=== PATIENT | female | born 1955 | race Caucasian/White ===

== ENCOUNTER → 2023-05-26 | Day surgery (SDC) | payer MEDICARE, MEDICAID ==
[~2023-05-26] VITALS: Ht 157.5 cm; Wt 68.5 kg
[~2023-05-26] MED LIST: ACET-2708 MT; BUPIVACAINE HCL/PF 0.5% (5MG/ML) 10ML ONE; CEFAZOLIN SODIUM 1000MG/VIAL ONE; DEXAMETHASONE 4MG/ML 1ML VIAL ONE; FENTANYL CITRATE/PF 50MCG/ML 2ML VIAL ONE; FERR325T23 PO; GLYCOPYRROLATE 0.2 MG/ML 2ML VIAL ONE; HYDROMORPHONE HCL/PF 2MG/ML CPJ IV PRN; LABETALOL 5MG/ML SYR 20 MG/4 ML SYRINGE IV PRN; LACTATED RINGERS 1,000 ML IV SCH; LEVO88TA7 PO; LIDOCAINE HCL 1% 10 MG/ML 10ML VIAL ONE; LIDOCAINE HCL 1% 20ML VIAL (Pyxis) INJ ONE; MEPERIDINE HCL/PF 25MG/ML CPJ IV PRN; MIDAZOLAM HCL 2 MG/2 ML VIAL ONE; NEOSTIGMINE METHYLSULFATE 1MG/ML 10 ML VIAL ONE; ONDANSETRON HCL 4MG/2ML INJ IV PRN; ONDANSETRON HCL 4MG/2ML INJ ONE; POLYMYXIN B SULFATE 500000 UNITS/VIAL ONE; PROPOFOL 200MG/20ML VIAL IV ONE; ROCURONIUM BROMIDE 10MG/ML VIAL 5ML IV ONE; SCOPOLAMINE HYDROBROMIDE PATCH 72HR TD NR; SKIN ADHESIVE 0.7 GM EA TOP ONE; SUCCINYLCHOLINE CHLORIDE 200MG/10ML IV ONE
[2023-05-26 13:44] VITALS: BP 101/56; PULSE 69; RESP 22
== END | disposition home or self-care (01) ==
LOC: OR 07:33
PROVIDERS: ATTEND Specialist
DX: K40.20 Bilateral inguinal hernia, without obstruction or gangrene, not specified as recurrent (principal); J45.909 Unspecified asthma, uncomplicated; E03.9 Hypothyroidism, unspecified; Z79.899 Other long term (current) drug therapy; Z98.890 Other specified postprocedural states
CPT/HCPCS: 88302; 88305; 71045; 49505; 49550; J3010; J3490 ×6; J0690; J1100; J2250; J2710; J2405; J2704; J0330; J1170; A4217; Z7610 ×21; C1781